=== PATIENT | female | born 1975 | race Caucasian/White ===

== ENCOUNTER 2016-04-02 10:49 | Outpatient (CLI) | payer OTHER ==
--- NOTE | 2016-04-02 13:06 | DIAGNOSTIC IMAGING REPORT ---
PROCEDURE: US COMPLETE PELVIC W/TRANSVAG INDICATION: SUBMUCOUS LEIOMYOMA OF UTERUS TECHNIQUE: Transabdominal and endovaginal jean baptiste scale and color Doppler sonographic images of the female pelvis were obtained. COMPARISON: 05/27/2012 FINDINGS: TRANSABDOMINAL SCANS: Anteverted uterus measures approximately approximately 8.9 cm in length. Hypoechoic mass in the posterior fundus. Normal to mildly increased vascularity to the myometrium as well as to this mass. No suspicious adnexal masses. Normal ovaries. The visible portion of the urinary bladder is normal. No significant free pelvic fluid. TRANSVAGINAL SCANS: The uterus is anteverted in position, measures 9.5 x 5.6 x 6.0 cm, and has a mildly heterogeneous myometrial echotexture. There is a dominant mass in the right midline posterior myometrium which indents and displaces the endometrium. It measures 5.5 x 5.2 x 3.7 cm, previously 3.3 cm in maximal diameter. The fundal endometrium is 13 mm in thickness. No endometrial fluid collections or suspicious masses. The right ovary measures 2.2 x 2.0 x 1.8 cm and has a normal follicular echotexture. Color Doppler flow is present but difficult to discern arterial and venous flow given the right ovarian position behind the uterus. The left ovary measures 4.0 x 2.4 x 2.5 cm and contains a peripherally hypervascular heterogeneously hypoechoic follicle consistent with an involuting hemorrhagic corpus luteum. Normal blood flow to the normal left ovarian stroma. No suspicious adnexal masses or free pelvic fluid. IMPRESSION: 1. 5.5 cm posterior submucosal fibroid displacing the endometrial stripe. The fibroid has increased in size compared to the prior study. 2. Hemorrhagic left ovarian corpus luteum.
== END 2016-04-02 23:00 | disposition home or self-care (01) ==
LOC: US SRH 10:49
DX: D25.0 Submucous leiomyoma of uterus (principal); N83.8 Other noninflammatory disorders of ovary, fallopian tube and broad ligament

== ENCOUNTER 2016-05-31 19:17 | Emergency (ER) | payer OTHER ==
--- NOTE | 2016-05-31 20:26 | DIAGNOSTIC IMAGING REPORT ---
PROCEDURE: CT HEAD WITHOUT CONTRAST INDICATION: VERTIGO/DIZZINESS TECHNIQUE: Noncontrast axial images with sagittal and coronal reformations. COMPARISON: None. FINDINGS: Brain and ventricles are normal. No evidence of an acute process or hemorrhage. Sinuses and mastoids are normal. IMPRESSION: 1. Negative head CT. 2. Findings discussed with ROQUE Arevalo at [address] scans at this facility use dose modulation, iterative reconstruction, and/or weight-based dosing when appropriate to reduce radiation dose to as low as reasonably achievable.
--- NOTE | 2016-05-31 20:29 | ED ORDER SUMMARY ---
..... Patient: RICARDO RICHARD OrderSheet [facility] VisitID: [id number] [address] [place] [address] 41y, F Registration Date/Time: 05/31/2016 ORDER SHEET Weight: 88.4 kg (stated) Allergies: No Known Drug Allergy GENERAL ORDERS: CT Head wo Cont (vertigo with headache upon awakening x 2 in past 2 weeks, and feeling weird...) Urgent (19:52 05/31/2016 Haleigh MARTIN) (Ack 19:55 IJurca ER Tech1) (20:21 RFay) MEDICATION ORDERS: Zofran ODT PO 4 mg (NOW) (19:53 05/31/2016 Haleigh MARTIN) (Ack 19:55 HSoule) (19:58 HSoule) IV FLUIDS: ORDER SHEET NOTES: [Electronically signed by Jenn Shelton (20:39 05/31/2016)] [Electronically signed by Dulce Maria Virk PA-C (20:51 05/31/2016)] [Electronically locked/signed by Jenn Shelton (20:39 05/31/2016)]
--- NOTE | 2016-05-31 20:29 | ED CLINICAL REPORT ---
Clinical Report - Physicians/Mid Levels [facility] [address] [place] [address] 05/31/2016 19:18 Patient: DEYA MURILLO Time Seen: 19:43; initial patient contact. Arrived- By private vehicle. Historian- patient. HISTORY OF PRESENT ILLNESS Is still present but is better now. Chief Complaint: HEADACHE. vertigo. This started yesterday pt began with dizziness and weird sensation in the back of her head and when she looks down, it causes severe room spinning and she vomited earlier. and patient was last known well (2 days ago). Located in the right hemicranial region. No neck pain. Not located in the facial region. At its maximum, severity described as 6 / 10. When seen in the E.D., severity described as 6 / 10. The patient has had nausea and mild vomiting. The vomiting has occurred twice. No photophobia or weakness. Similar symptoms previously: Once (2 weeks ago). Recent medical care: Not recently seen/assessed. REVIEW OF SYSTEMS No fever, muscle aches, sinus pressure, chest pain or difficulty breathing. She has had mild right ear pain (2 days ago). All systems otherwise negative, except as recorded above. PAST HISTORY See nurses notes. No history of chronic headaches. No history of sinus problems. Problems: no known problems. Medications: None. Allergies: No Known Drug Allergy. SOCIAL HISTORY Never smoker. No alcohol use or drug use. FAMILY HISTORY Negative. ADDITIONAL NOTES The nursing notes have been reviewed with agreement regarding the chief complaint, HPI, ROS, PMH and patient medications and allergies. PHYSICAL EXAM Vital Signs: 05/31/2016 20:37 BP: 118/75. HR: 70. RR: 20. O2 saturation: 100%. Pain level now: 07/18. 05/31/2016 19:27 BP: 124/80. HR: 80. RR: 20. O2 saturation: 100%. Temp: 98.5 F. Pain level now: 07/18. Have been reviewed. Appearance: Alert. No acute distress. Eyes: Pupils equal, round and reactive to light. Eyes normal inspection. No nystagmus. ENT: Ears normal. Nose normal. Pharynx normal. Neck: Normal inspection. Neck supple. CVS: Normal heart rate and rhythm. Heart sounds normal. Pulses normal. Respiratory: No respiratory distress. Breath sounds normal. Neuro: Awake. Alert. Oriented X 3 and 3. Alert. Mood/affect normal and normal. Speech normal and normal. Cranial nerves II through XII intact and normal (as tested). No cerebellar findings. No motor deficit. Reflexes normal. (reproduceable vertigo with looking downward and then looking up and with rotation of the head from side to side with sense of clockwise room spinning). LABS, X-RAYS, AND EKG CT Head: No acute disease. (Name: Deya Murillo : 1975 MR#: [id number] Ordering Provider: EMILY EATON Exam(s): CT HEAD WITHOUT CONTRAST Date of Exam: 05/31/2016 __ PROCEDURE: CT HEAD WITHOUT CONTRAST INDICATION: VERTIGO/DIZZINESS TECHNIQUE: Noncontrast axial images with sagittal and coronal reformations. COMPARISON: None. FINDINGS: Brain and ventricles are normal. No evidence of an acute process or hemorrhage. Sinuses and mastoids are normal. IMPRESSION: 1. Negative head CT. 2. Findings discussed with ROQUE Arevalo at [address] scans at this facility use dose modulation, iterative reconstruction, and/or weight-based dosing when appropriate to reduce radiation dose to as low as reasonably achievable. Electronically Final signed by:Lizandro Valenzuela MD 05/31/2016 8:23:17 PM Technologist: FERMÍN). The study was independently viewed by me, interpreted by the radiologist and discussed with the radiologist. PROGRESS AND PROCEDURES Course of Care: Patient is stable. Physical exam findings are improved. Symptoms better. Patient/family counseled. CLINICAL IMPRESSION Benign positional vertigo- acute, right ear. INSTRUCTIONS No strenuous activity. Rest. Warnings: Further evaluation is necessary. Prescription Medications: Zofran (orally disintegrating tablets) 4 mg: take 1-2 orally every 6 hours as needed for nausea and vomiting. Dispense ten (10). No refill. Substitution is permissible. Meclizine 25 mg: take 1 tablet orally every 6 hours as needed for dizziness or nausea. Dispense twenty (20). No refill. Follow-up: Follow up with your doctor Wednesday if not better. Reason for referral: vertigo. Follow up with a neurologist- as recommended by your primary care physician- if not better. Understanding of the discharge instructions verbalized by patient and family. (Electronically signed by Emily Eaton PA-C 05/31/2016 20:51)
--- NOTE | 2016-05-31 20:29 | ED CLINICAL REPORT ---
Clinical Report - Physicians/Mid Levels [facility] [address] [place] [address] 05/31/2016 19:18 Patient: DEYA MURILLO Time Seen: 19:43; initial patient contact. Arrived- By private vehicle. Historian- patient. HISTORY OF PRESENT ILLNESS Is still present but is better now. Chief Complaint: HEADACHE. vertigo. This started yesterday pt began with dizziness and weird sensation in the back of her head and when she looks down, it causes severe room spinning and she vomited earlier. and patient was last known well (2 days ago). Located in the right hemicranial region. No neck pain. Not located in the facial region. At its maximum, severity described as 6 / 10. When seen in the E.D., severity described as 6 / 10. The patient has had nausea and mild vomiting. The vomiting has occurred twice. No photophobia or weakness. Similar symptoms previously: Once (2 weeks ago). Recent medical care: Not recently seen/assessed. REVIEW OF SYSTEMS No fever, muscle aches, sinus pressure, chest pain or difficulty breathing. She has had mild right ear pain (2 days ago). All systems otherwise negative, except as recorded above. PAST HISTORY See nurses notes. No history of chronic headaches. No history of sinus problems. Problems: no known problems. Medications: None. Allergies: No Known Drug Allergy. SOCIAL HISTORY Never smoker. No alcohol use or drug use. FAMILY HISTORY Negative. ADDITIONAL NOTES The nursing notes have been reviewed with agreement regarding the chief complaint, HPI, ROS, PMH and patient medications and allergies. PHYSICAL EXAM Vital Signs: 05/31/2016 20:37 BP: 118/75. HR: 70. RR: 20. O2 saturation: 100%. Pain level now: 07/18. 05/31/2016 19:27 BP: 124/80. HR: 80. RR: 20. O2 saturation: 100%. Temp: 98.5 F. Pain level now: 07/18. Have been reviewed. Appearance: Alert. No acute distress. Eyes: Pupils equal, round and reactive to light. Eyes normal inspection. No nystagmus. ENT: Ears normal. Nose normal. Pharynx normal. Neck: Normal inspection. Neck supple. CVS: Normal heart rate and rhythm. Heart sounds normal. Pulses normal. Respiratory: No respiratory distress. Breath sounds normal. Neuro: Awake. Alert. Oriented X 3 and 3. Alert. Mood/affect normal and normal. Speech normal and normal. Cranial nerves II through XII intact and normal (as tested). No cerebellar findings. No motor deficit. Reflexes normal. (reproduceable vertigo with looking downward and then looking up and with rotation of the head from side to side with sense of clockwise room spinning). LABS, X-RAYS, AND EKG CT Head: No acute disease. (Name: Deya Murillo : 1975 MR#: [id number] Ordering Provider: EMILY EATON Exam(s): CT HEAD WITHOUT CONTRAST Date of Exam: 05/31/2016 __ PROCEDURE: CT HEAD WITHOUT CONTRAST INDICATION: VERTIGO/DIZZINESS TECHNIQUE: Noncontrast axial images with sagittal and coronal reformations. COMPARISON: None. FINDINGS: Brain and ventricles are normal. No evidence of an acute process or hemorrhage. Sinuses and mastoids are normal. IMPRESSION: 1. Negative head CT. 2. Findings discussed with ROQUE Arevalo at [address] scans at this facility use dose modulation, iterative reconstruction, and/or weight-based dosing when appropriate to reduce radiation dose to as low as reasonably achievable. Electronically Final signed by:Lizandro Valenzuela MD 05/31/2016 8:23:17 PM Technologist: FERMÍN). The study was independently viewed by me, interpreted by the radiologist and discussed with the radiologist. PROGRESS AND PROCEDURES Course of Care: Patient is stable. Physical exam findings are improved. Symptoms better. Patient/family counseled. CLINICAL IMPRESSION Benign positional vertigo- acute, right ear. INSTRUCTIONS No strenuous activity. Rest. Warnings: Further evaluation is necessary. Prescription Medications: Zofran (orally disintegrating tablets) 4 mg: take 1-2 orally every 6 hours as needed for nausea and vomiting. Dispense ten (10). No refill. Substitution is permissible. Meclizine 25 mg: take 1 tablet orally every 6 hours as needed for dizziness or nausea. Dispense twenty (20). No refill. Follow-up: Follow up with your doctor Wednesday if not better. Reason for referral: vertigo. Follow up with a neurologist- as recommended by your primary care physician- if not better. Understanding of the discharge instructions verbalized by patient and family. (Electronically signed by Emily Eaton PA-C 05/31/2016 20:51)
--- NOTE | 2016-05-31 20:29 | ED NURSING NOTES ---
Clinical Report - Nurses [place] [address] [place] [address] 05/31/2016 19:18 [id number] Triage time 19:May 31 2016. Acuity: LEVEL 3. Chief Complaint: HEADACHE and VOMITING and DIZZINESS. 19:31 05/31/16. SEPSIS SCREEN: Sepsis Screen: negative. Negative (no infection suspected/documented). CASA COMA SCORE: [place] Coma Scale: 15- eyes open spontaneously (4); best verbal response- oriented x 4 (5); best motor response- obeys commands (6). --19:31 Jenn Shelton 19:27 05/31/16. BP: 124/80. HR: 80. RR: 20. O2 saturation: 100% on room air. Temp: 98.5 F (oral). Pain level now: 07/18. --19:31 Jenn Shelton. Weight: 88.4 kg stated. Height/Length: 64 inches Per Patient. BMI: 33.5. --19:30 Jenn Shelton. Medications None. --19:29 Jenn Shelton. Medication/allergy information source: the patient. --19:31 Jenn Shelotn. Allergies No Known Drug Allergy. --19:29 Jenn Shelton. History Arrived by private vehicle. Historian: patient. Accompanied by family. Primary physician ([facility]). This started today. Started while sleeping. ( Patient reports that she woke with a headache. She states she feels "weird". She states she feels some dizziness and nausea. She reports that she feels more pain when she moves her head back and forth. She reports no previous history of migraine headaches.). PAST MEDICAL HX: Immunizations: up-to-date. Last normal menstrual period now. SOCIAL HX: Never smoker. No alcohol use or drug use. No recent travel. No infectious disease exposure. No known contact with a sick individual. ABUSE ASSESSMENT: No report of abuse. FALL RISK ASSESSMENT: Fall risk assessment completed. No fall risk identified. NUTRITIONAL RISK ASSESSMENT: The nutritional risk assessment revealed no deficiencies. FUNCTIONAL ASSESSMENT: Functional assessment: no impairments noted. LEARNING NEEDS ASSESSMENT: The learning needs assessment revealed no barriers. SKIN INTEGRITY ASSESSMENT: Skin integrity risk assessment completed. No skin integrity risk identified. --19:31 Jenn Shelton. PROBLEMS: no known problems. ADDITIONAL SURGERIES: . Lithotripsy. --19:30 Jenn Shelton. Interventions ID band on patient. To treatment room. --19:31 Jenn Shelton. PHYSICAL ASSESSMENT Ambulatory to room. Patient gowned. GENERAL / NEURO / PSYCH: Alert. Oriented X 4. Appears in pain. Speech within normal limits. HEENT: No facial asymmetry noted. Pupils equal, round and reactive to light. ( Patients pain originating from occipital area of the head). RESPIRATORY: Respirations not labored. GI / : Abdomen soft and nontender. SKIN: Skin is warm and dry. --19:32 Jenn Shelton. NURSING PROGRESS NOTES Cold pack applied. Patient gowned. Warming measures: blanket applied. Reassurance given. Lights dimmed. Two patient identifiers checked. Call light placed in reach. Side rails up x 1. Bed placed in lowest position. Brakes of bed on. Patient ready for evaluation- chart flagged and ED physician notified. --19:33 Jenn Shelton 19:58 05/31/2016 Zofran ODT (Ondansetron) PO Oral Disintegrating Tablets 4 mg given. Allergies verified and confirmed 5 rights. --19:58 Jenn Shelton. DISPOSITION / DISCHARGE Condition at departure: stable. The goals identified in the patient's plan of care were met. No learning barriers present. Discharge instructions provided and reviewed with the patient and spouse. Reviewed warnings (Do not drive while on sedative medications). Reviewed medication(s) side effects, precautions, dosing and course information. Prescription(s) given to the patient. Reviewed need for increased fluid intake. Patient and spouse verbalized understanding. Written instructions provided in Slovenian and Sudanese. ( Return if symptoms worsen. Follow up with your PCP in three days. Rest and get up slowly. Patient and family verbalized understanding and had no questions at this time.). The patient was discharged by the physician finance assistant. She was discharged home and accompanied by spouse. She left the Emergency Department ambulatory and via private vehicle. Spouse driving. FALL RISK ASSESSMENT: Fall risk assessment completed. No fall risk identified. --20:39 Jenn Shelton 20:37 05/31/16. BP: 118/75. HR: 70. RR: 20. O2 saturation: 100% on room air. Temp: deferred. Pain level now: 07/18. --20:39 Jenn Shelton. Locked/Released at 05/31/2016 20:39 by Jenn Shelton,
--- NOTE | 2016-05-31 20:29 | ED NURSING NOTES ---
Clinical Report - Nurses [place] [address] [place] [address] 05/31/2016 19:18 [id number] Triage time 19:May 31 2016. Acuity: LEVEL 3. Chief Complaint: HEADACHE and VOMITING and DIZZINESS. 19:31 05/31/16. SEPSIS SCREEN: Sepsis Screen: negative. Negative (no infection suspected/documented). CASA COMA SCORE: [place] Coma Scale: 15- eyes open spontaneously (4); best verbal response- oriented x 4 (5); best motor response- obeys commands (6). --19:31 Jenn Shelton 19:27 05/31/16. BP: 124/80. HR: 80. RR: 20. O2 saturation: 100% on room air. Temp: 98.5 F (oral). Pain level now: 07/18. --19:31 Jenn Shelton. Weight: 88.4 kg stated. Height/Length: 64 inches Per Patient. BMI: 33.5. --19:30 Jenn Shelton. Medications None. --19:29 Jenn Shelton. Medication/allergy information source: the patient. --19:31 Jenn Shelton. Allergies No Known Drug Allergy. --19:29 Jenn Shelton. History Arrived by private vehicle. Historian: patient. Accompanied by family. Primary physician ([facility]). This started today. Started while sleeping. ( Patient reports that she woke with a headache. She states she feels "weird". She states she feels some dizziness and nausea. She reports that she feels more pain when she moves her head back and forth. She reports no previous history of migraine headaches.). PAST MEDICAL HX: Immunizations: up-to-date. Last normal menstrual period now. SOCIAL HX: Never smoker. No alcohol use or drug use. No recent travel. No infectious disease exposure. No known contact with a sick individual. ABUSE ASSESSMENT: No report of abuse. FALL RISK ASSESSMENT: Fall risk assessment completed. No fall risk identified. NUTRITIONAL RISK ASSESSMENT: The nutritional risk assessment revealed no deficiencies. FUNCTIONAL ASSESSMENT: Functional assessment: no impairments noted. LEARNING NEEDS ASSESSMENT: The learning needs assessment revealed no barriers. SKIN INTEGRITY ASSESSMENT: Skin integrity risk assessment completed. No skin integrity risk identified. --19:31 Jenn Shelton. PROBLEMS: no known problems. ADDITIONAL SURGERIES: . Lithotripsy. --19:30 Jenn Shelton. Interventions ID band on patient. To treatment room. --19:31 Jenn Shelton. PHYSICAL ASSESSMENT Ambulatory to room. Patient gowned. GENERAL / NEURO / PSYCH: Alert. Oriented X 4. Appears in pain. Speech within normal limits. HEENT: No facial asymmetry noted. Pupils equal, round and reactive to light. ( Patients pain originating from occipital area of the head). RESPIRATORY: Respirations not labored. GI / : Abdomen soft and nontender. SKIN: Skin is warm and dry. --19:32 Jenn Shelton. NURSING PROGRESS NOTES Cold pack applied. Patient gowned. Warming measures: blanket applied. Reassurance given. Lights dimmed. Two patient identifiers checked. Call light placed in reach. Side rails up x 1. Bed placed in lowest position. Brakes of bed on. Patient ready for evaluation- chart flagged and ED physician notified. --19:33 Jenn Shelton 19:58 05/31/2016 Zofran ODT (Ondansetron) PO Oral Disintegrating Tablets 4 mg given. Allergies verified and confirmed 5 rights. --19:58 Jenn Shelton. DISPOSITION / DISCHARGE Condition at departure: stable. The goals identified in the patient's plan of care were met. No learning barriers present. Discharge instructions provided and reviewed with the patient and spouse. Reviewed warnings (Do not drive while on sedative medications). Reviewed medication(s) side effects, precautions, dosing and course information. Prescription(s) given to the patient. Reviewed need for increased fluid intake. Patient and spouse verbalized understanding. Written instructions provided in Frisian and Greenlandic. ( Return if symptoms worsen. Follow up with your PCP in three days. Rest and get up slowly. Patient and family verbalized understanding and had no questions at this time.). The patient was discharged by the physician coding assistant. She was discharged home and accompanied by spouse. She left the Emergency Department ambulatory and via private vehicle. Spouse driving. FALL RISK ASSESSMENT: Fall risk assessment completed. No fall risk identified. --20:39 Jenn Shelton 20:37 05/31/16. BP: 118/75. HR: 70. RR: 20. O2 saturation: 100% on room air. Temp: deferred. Pain level now: 07/18. --20:39 Jenn Shelton. Locked/Released at 05/31/2016 20:39 by Jenn Shelton,
--- NOTE | 2016-05-31 20:29 | ED ORDER SUMMARY ---
..... Patient: RICARDO RICHARD OrderSheet [facility] VisitID: [id number] [address] [place] [address] 41y, F Registration Date/Time: 05/31/2016 ORDER SHEET Weight: 88.4 kg (stated) Allergies: No Known Drug Allergy GENERAL ORDERS: CT Head wo Cont (vertigo with headache upon awakening x 2 in past 2 weeks, and feeling weird...) Urgent (19:52 05/31/2016 Haleigh MARTIN) (Ack 19:55 IJurca ER Tech1) (20:21 RFay) MEDICATION ORDERS: Zofran ODT PO 4 mg (NOW) (19:53 05/31/2016 Haleigh MARTIN) (Ack 19:55 HSoule) (19:58 HSoule) IV FLUIDS: ORDER SHEET NOTES: [Electronically signed by Jenn Shelton (20:39 05/31/2016)] [Electronically signed by Dulce Maria Virk PA-C (20:51 05/31/2016)] [Electronically locked/signed by Jenn Shelton (20:39 05/31/2016)]
--- NOTE | 2016-05-31 20:51 | ED DISCHARGE INSTRUCTIONS ---
Patient: RICARDO RICHARD General Instructions [facility] VisitID: [id number] [place] [address] 41y, F Registration Date/Time: 05/31/2016 Benign positional vertigo- acute, right ear. INSTRUCTIONS No strenuous activity. Rest. Warnings: Further evaluation is necessary. Prescription Medications: Zofran (orally disintegrating tablets) 4 mg: take 1-2 orally every 6 hours as needed for nausea and vomiting. Dispense ten (10). No refill. Substitution is permissible. Meclizine 25 mg: take 1 tablet orally every 6 hours as needed for dizziness or nausea. Dispense twenty (20). No refill. Follow-up: Follow up with your doctor Wednesday if not better. Reason for referral: vertigo. Follow up with a neurologist- as recommended by your primary care physician- if not better. Understanding of the discharge instructions verbalized by patient and family. ADDITIONAL INFORMATION Benign Positional Vertigo The inner ear is located behind the middle ear. It is a part of the balance center of the body. It contains small calcium particles within fluid filled canals (semi-circular canals). These particles can move out of position as a result of aging, head trauma or disease of the inner ear. Once that happens, movement of the head into certain positions may cause the particles to stimulate the inner ear and create the feeling of vertigo. Vertigo is a false feeling of motion (as if you or the room is spinning). A vertigo attack may cause sudden nausea, vomiting and heavy sweating. Severe vertigo causes a loss of balance and may result in falling. During an attack of vertigo, head movement and body position changes will worsen symptoms. An episode of vertigo may last seconds, minutes or hours. Once you are over the first episode of vertigo, it may never return. Sometimes symptoms recur off and on over several weeks or longer. Home Care: If symptoms are severe, rest quietly in bed. Change positions slowly. There is usually one position that will feel best, such as lying on one side or lying on your back with your head slightly raised on pillows. Do not drive or work with dangerous machinery for one week after symptoms disappear, in case of a sudden return of symptoms. Take medicine as prescribed to relieve your symptoms. Unless another medicine was prescribed for nausea, vomiting and vertigo, you may use [id number] motion sickness pills, such as meclizine (Bonine, Bonamine, Antivert) or dimenhydrinate (Dramamine). Follow Up with your doctor or as directed by our staff. Report any persistent ringing in the ear or hearing loss to your doctor. [NOTE: If you had a CT or MRI scan, it will be reviewed by a specialist. You will be notified of any new findings that may affect your care.] Get Prompt Medical Attention if any of the following occur: Worsening of vertigo not controlled by the medicine prescribed Repeated vomiting not controlled by the medicine prescribed Increased weakness or fainting Severe headache or unusual drowsiness or confusion Weakness of an arm or leg or one side of the face Difficulty with speech or vision Seizure You have been given the following additional information: Benign Positional Vertigo No strenuous activity. Rest. (Electronically signed by Dulce Maria Virk PA-C 05/31/2016 20:51)
--- NOTE | 2016-05-31 20:51 | ED MAR SUMMARY ---
..... Medication Administration Record [address] [place] [address] Patient: RICARDO RICHARD Visit ID: [id number] 41y, F Weight: 88.4 kg Height/Length: 64 in BMI: 33.5 ALLERGIES: No Known Drug Allergy Given 19:58 05/31/2016 Jenn Shelton, Medication Administered: ZOFRAN ODT [PO] (ONDANSETRON), Dose: 4 mg Oral Disintegrating Tablets PO. Medication Ordered: Zofran ODT PO 4 mg (NOW).
--- NOTE | 2016-05-31 20:51 | ED MAR SUMMARY ---
..... Medication Administration Record [address] [place] [address] Patient: RICARDO RICHARD Visit ID: [id number] 41y, F Weight: 88.4 kg Height/Length: 64 in BMI: 33.5 ALLERGIES: No Known Drug Allergy Given 19:58 05/31/2016 Jenn Shelton, Medication Administered: ZOFRAN ODT [PO] (ONDANSETRON), Dose: 4 mg Oral Disintegrating Tablets PO. Medication Ordered: Zofran ODT PO 4 mg (NOW).
--- NOTE | 2016-05-31 20:51 | ED MED RECONCILIATION SUMMARY ---
Patient: RICARDO RICHARD Medication Reconciliation Report [facility] VisitID: [id number] [place] [address] 41y, F Registration Date/Time: 05/31/2016 Weight: 88.4 kg Height/Length: 64 in. BMI: 33.5 ALLERGIES: No Known Drug Allergy The patient's Home Medications are listed below: NONE. The source(s) of the original Home Medication information: patient The following Medications were given to the patient in the Emergency Department: Zofran ODT [PO] PO 4 mg, administered: 05/31/2016 7:58:00 PM The following Medications were prescribed to the patient: Zofran (orally disintegrating tablets) 4 mg: take 1-2 orally every 6 hours as needed for nausea and vomiting. Dispense ten (10). No refill. Substitution is permissible. -- Dulce Maria Virk PA-C Meclizine 25 mg: take 1 tablet orally every 6 hours as needed for dizziness or nausea. Dispense twenty (20). No refill. -- Dulce Maria Virk PA-C
--- NOTE | 2016-05-31 20:51 | ED MED RECONCILIATION SUMMARY ---
Patient: RICARDO RICHARD Medication Reconciliation Report [facility] VisitID: [id number] [place] [address] 41y, F Registration Date/Time: 05/31/2016 Weight: 88.4 kg Height/Length: 64 in. BMI: 33.5 ALLERGIES: No Known Drug Allergy The patient's Home Medications are listed below: NONE. The source(s) of the original Home Medication information: patient The following Medications were given to the patient in the Emergency Department: Zofran ODT [PO] PO 4 mg, administered: 05/31/2016 7:58:00 PM The following Medications were prescribed to the patient: Zofran (orally disintegrating tablets) 4 mg: take 1-2 orally every 6 hours as needed for nausea and vomiting. Dispense ten (10). No refill. Substitution is permissible. -- Dulce Maria Virk PA-C Meclizine 25 mg: take 1 tablet orally every 6 hours as needed for dizziness or nausea. Dispense twenty (20). No refill. -- Dulce Maria Virk PA-C
== END 2016-05-31 20:32 | disposition home or self-care (01) ==
LOC: ED SRH 19:17
DX: H81.11 Benign paroxysmal vertigo, right ear (principal)